=== PATIENT | female | born 2000 | race Caucasian/White ===

== ENCOUNTER 2023-04-14 13:24 | Outpatient (CLI) | payer BC, SELFPAY | END 2023-04-14 13:25 | disposition home or self-care (01) | LOC: LKVREF 13:25 | PROVIDERS: PCP Physician Assistant Medical; Visit Provider Physician Assistant Medical | DX: L02.31 Cutaneous abscess of buttock (principal); L03.317 Cellulitis of buttock | CPT/HCPCS: 87070; 87186 ==

== ENCOUNTER 2025-04-23 09:22 | Emergency (ER) | payer BC, SELFPAY ==
[2025-04-23 09:25] VITALS: BP 121/83; PULSE 83; RESP 16; TEMP 36.9; O2SAT 100; BMI 24.4
--- OUTSIDE RECORDS SUMMARY | 2025-04-23 09:25 | XMS_ITS | Clinical Summary ---
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 [facility] Allergies No known active allergies Medications JUSTIN 0.25-35 MG-MCG tablet Take 1 Tablet by mouth daily. 1 Active methylPREDNISol one (MEDROL 21 TABLET DOSEPACK) 4 MG tablet Follow package directions 21 Tablet 2 Active methocarbamol (ROBAXIN) 500 MG tablet Take 1 Tablet (500 mg) by mouth at bedtime as needed for Other. 20 Tablet 2 Active Active Problems No known active problems Social History Tobacco Use Types Packs/Day Years Used Date Smoking Tobacco: Never Smokeless Tobacco: Never Alcohol Use Standard Drinks/Week Comments Yes 0 (1 standard drink = 0.6 oz pur e alcohol) Comments No Sex and Gender Information Value Date Recorded Sex Assigned at Not on file Legal Sex Female 3:15 PM CDT Gender Identity Not on file Sexual Orientation Not on file Last Filed Vital Signs Vital Sign Reading Time Taken Comments Blood Pressure 107/67 03/04/2022 11:28 AM CDT Pulse 87 03/04/2022 11:28 AM CDT Temperature 36.6 C (97.9 F) 03/04/2022 11:28 AM CDT Respiratory Rate 16 03/04/2022 11:28 AM CDT Oxygen Saturation 100% 03/04/2022 11:28 AM CDT Inhaled Oxygen Concentration - - Weight - - Height - - Body Mass Index - - Plan of Treatment Health Maintenance Due Date Last Done Comments Cervical Cancer Screening Due 1999 Chlamydia 1999 Hep C Screening (Preventive Services) 1999 HepA Vaccine (2 of 2 - 2-dose series) 03/05/2010 09/04/2009 HPV Vaccine (1 - 3-dose series) 2014 HIV Screening (Preventive Services) 2015 Adult Preventive Visit 2017 HepB Vaccine (1) 2018 COVID-19 Vaccine ( season) 2024 Influenza Vaccine (#1) 2025 , 05/15/2021, 06/19/2020, Additional history exists DTaP/Tdap/Td Vaccine (7 - Tdap) 08/28/2031 08/28/2021, 05/04/2012, 09/03/2004, Additional history exists Zoster/Shingles Vaccine (1 of 2) 2049 Hib Vaccine Completed 11/15/2000, 1999 Pneumococcal Vaccine Aged Out 11/15/2000, 08/10/2000, 06/02/2000 No longer eligible based on patient's age to complete this topic IPV (Polio) Vaccine Completed 09/03/2004, 01/28/2000, 1999 MCV4 Vaccine Aged Out 05/04/2012 No longer eligi ble based on patient's age to complete this topic Meningococcal B Vaccine Aged Out No l onger eligible based on patient's age to complete this topic Insurance [place] [address] Care Teams Acid Bleacher Relationship Specialty Start Date End Date Unassigned, Provider [address] [place] [address] PCP - General 06/22/02
--- NOTE | 2025-04-23 09:50 | ED.GENADULT ---
HPI - General Adult General Date Seen: 04/23/25 Chief complaint: Allergic Reaction Stated complaint: possible alleric reaction Time Seen by Provider: 04/23/25 09:50 History of Present Illness HPI narrative: 24 yo F generally healthy, presenting to the ER today for evaluation an episode of numbness that affected her left hand followed by and numb tingly pins and needles feeling in her lips. She was worried this might be an allergic reaction. She is generally healthy. She has a Nexplanon but takes no other medications. She has no chronic medical conditions. She has been healthy lately. She is here with her mother. Mother notes that she has been under some stress recently because she is young mother in there has been some financial stress. However the patient does not really feel like she has been ?stressed out. ? It is not really feel like panic. The patient does not have a personal history of anxiety or panic disorder. She works from home. At about 830 this morning she was doing some computer work when she had onset of a tingling paresthesia that fact did the finger tips of all 5 fingers of her left hand. She did have other numbness or tingling in her left arm and no symptoms involving her right arm or her legs. Her low left hand was not really clumsy or weak. It was just a little bit tingly. The tingling lasted about 10 minutes or so. Around the time the tingling in her hand and she also noted that she had a tingly feeling affecting her lips on both sides of her upper and lower lip. She says they felt tingly almost like pins and needles when her foot fall asleep. She does not think they were swollen. She also had a little bit of a tingly sensation in her mouth and throat. She was able to swallow. No shortness of breath. Since then she has also developed a bifrontal headache. Eyes are normal. Face is normal. No slurred speech. No facial droop. Neck no posterior headache. No neck pain. She has not had any rash or hives. No trouble breathing. No abdominal pain. No nausea or vomiting. Mother notes that she does have episodes where she gets purple toes from time to time that might be due to ?poor circulation. ?. She has never been diagnosed with Raynaud's disease. She does not think she is . She has Nexplanon. She is sexually active, so does have a lingering doubt that she might be. Related Data Home Medications ?Medication ?Instructions ?Recorded ?Confirmed etonogestrel 68 mg subdermal 1 implant subdermal ONCE 04/14/23 04/23/25 implant (Nexplanon) Allergies Allergy/AdvReac Type Severity Reaction Status Date / Time No Known Drug Allergies Allergy Verified 03/21/25 16:26 [facility] Medical History Calculus of right ureter ?N20.1 - Calculus of ureter (ICD-10) Macrosomia of fetus affecting management of mother ?O36.60X0 - Maternal care for excessive growth, unspecified trimester, not applicable or unspecified (ICD-10) Ruptured ovarian cyst ?N83.209 - Unspecified ovarian cyst, unspecified side (ICD-10) Urinary tract infection ?N39.0 - Urinary tract infection, site not specified (ICD-10) Exam Narrative: Exam Narrative: Constitutional: Appears well-developed and well-nourished. Alert. Conversant. Non toxic. HENT: Head: Atraumatic. Nose: Nose normal. Mouth/Throat: Oral mucosa is clear and moist. no trismus. Pharynx normal. Tonsils symmetric. No tonsillar enlargement, erythema, or exudate. Eyes: Conjunctivae normal. EOM normal. Pupils equal, round, and reactive to light. No scleral icterus. Neck: Normal range of motion. Neck supple. No tracheal deviation present. Cardiovascular: Normal rate, regular rhythm. No gallop. No friction rub. No murmur heard. Symmetric radial artery pulses Pulmonary/Chest: Effort normal. No stridor. No respiratory distress. No wheezes. No rales. No rhonchi . No tenderness. Abdominal: Soft. Bowel sounds normal. No distension. No mass. No tenderness. No rebound. No guarding. Musculoskeletal: RUE: Normal range of motion. No tenderness. No deformity LUE: Normal range of motion. No tenderness. No deformity RLE: Normal range of motion. No edema. No tenderness. No deformity LLE: Normal range of motion. No edema. No tenderness. No deformity Lymph: No cervical adenopathy. Neurological: Mental status normal. Attention normal. Alert and oriented x3. GCS 15. Memory normal. Speech fluent. Cognition normal. Cranial Nerves intact II-XII except I did not formally test gag or visual acuity. EOMI. Palate elevates symmetrically and tongue protrudes in the midline. Strength: 5/5 trapezius on the right and left 5/5 deltoid on the right and left 5/5 biceps on the right and left 5/5 triceps on the right and left 5/5 oil and gas lease pumper on the right and left 5/5 thumb opposition on the right and left 5/5 finger abduction on the right and left 5/5 hip flexors (L3) on the right and left 5/5 quadriceps (L4) on the right and left 5/5 tibialis anterior on the right and left 5/5 EHL (L5) on the right and left 5/5 gastrocnemius (S1) on the right and left 5/5 hamstring on the right and left Sensation intact to light touch in both upper extremities (C4-T1) Sensation intact to light touch in Both lower extremities (L4-S1). Finger to nose and coordination normal. Gait normal. Skin: Skin is warm and dry. No rash noted. No pallor. Normal capillary refill. Psychiatric: Normal mood. Normal affect. Const: Vital Signs, click to edit/add: Vital Signs - 24 hr 04/23/25 09:25 Temperature 98.4 F Pulse Rate [Pulse Oximeter] 83 Respiratory Rate 16 Blood Pressure [Ri ght Upper Arm] 121/83 Pulse Oximetry 100 Oxygen Delivery Me thod Room Air Course Vital Signs Vital signs: Initial Vital Signs Respiratory Effort Normal, Spontaneous, Non-Labored 04/23/25 09:24 Respiratory Depth Normal 04/23/25 09:24 Respiratory Pattern Normal 04/23/25 09:24 Vital Signs Temperature 98.4 F 04/23/25 09:25 Pulse Rate 83 04/23/25 09:25 Respiratory Rate 16 04/23/25 09:25 Blood Pressure 121/83 04/23/25 09:25 Pulse Oximetry 100 04/23/25 09:25 Oxygen Delivery Method Room Air 04/23/25 09:25 Temperature 98.4 F 04/23/25 09:25 Pulse Rate 83 04/23/25 09:25 Respiratory Rate 16 04/23/25 09:25 Blood Pressure 121/83 04/23/25 09:25 Pulse Oximetry 100 04/23/25 09:25 Oxygen Delivery Method Room Air 04/23/25 09:25 Medications Administered Medications: Discontinued Medications Generic Name Dose Route Start Last Admin Trade Name Telly PRN Reason Stop Dose Admin Acetaminophen 1,000 mg 04/23/25 10:23 04/23/25 10:34 Acetaminophen 500 Mg Tablet PO 04/23/25 10:24 1,000 mg ONCE ONE Administration Diphenhydramine HCl 25 mg 04/23/25 10:26 04/23/25 10:34 Diphenhydramine 25 Mg Capsule PO 04/23/25 10:27 25 mg ONCE ONE Administration Medical Decision Making MDM Narrative Medical decision making narrative: Very pleasant generally healthy 24-year-old female presenting to the ER today with an episode lasting about 10 minutes where she had a tingling paresthesias involving the fingertips of her left hand which was followed shortly thereafter by circumoral tingling this and a little bit of tenderness in her mouth and throat. Differential is broad Patient was concerned that she might be having allergic reaction because she had coffee with new cream for this morning. On my exam I do not see any objective evidence for an allergic reaction such as hives, bronchospasm. She is not having any symptoms anaphylactic shock. No GI symptoms. No objective airway or lip swelling. We did treat with Benadryl. At this point does not necessitate epi for steroids She is not . Differential would also include other causes of left hand numbness such as stroke/TIA, S. Discussed this, in detail, with the patient and her mother. At this point we did elect to observe here in the ER to see if she has any evolving or recurring neurologic symptoms. Nothing occurred. We discussed that workup would include brain MRI, angiogram of her head neck, possibly lumbar puncture to check CSF if there is suspicion for MS. Since this was a single self-limited episode, using shared decision-making, we decided forego further workup. Need for follow-up reviewed in detail. Precautions for return to the ER reviewed. Questions answered. Patient and her mother are clear double with the plan of careful observation. Lab Data Labs: Lab Results 04/23/25 Range/Units 10:41 Urine HCG, Qual Negative (Negative) Discharge Plan Discharge Clinical Impression: Left hand paresthesia, Facial paresthesia Patient Disposition: Home, Self-Care Condition: Stable Instructions: Paresthesia (ED) Additional Instructions: As we discussed, at this time we did not know what caused her left hand to be now more your lips to be numb. So far your evaluation looks reassuring. However, I want you to monitor your condition carefully. If you have any more episodes of numbness or weakness, or if it of all other symptoms such as fever, severe headache, visual blurriness or double vision, please come back to the ER right away to be rechecked. Even if you are doing well, please recheck with your regular primary care provider for a checkup within the next 5-10 days. Prescriptions: No Action Nexplanon 68 mg implant 1 implant subdermal ONCE Rx Instructions: as a single dose Follow Up/Referrals: Maureen Jaquez PA-C [Primary Care Provider, Family Practice] Stand Alone Forms: [facility] Info Instructions
[2025-04-23] MEDS: ACETAMINOPHEN 500 MG TABLET 1000 MG PO (10:34)
[2025-04-23 10:47] LABS: Ur HCG Qualitative* Negative (Negative)
== END 2025-04-23 11:51 | disposition home or self-care (01) ==
PROVIDERS: Emergency Provider Emergency Medicine; PCP Physician Assistant Medical
DX: R20.2 Paresthesia of skin (principal)
CPT/HCPCS: 81025; 99282; 99283; A9270

== ENCOUNTER 2025-05-10 15:18 | Outpatient (CLI) | payer BC, SELFPAY ==
[2025-05-12 06:18] LABS: HPV Source Cervix
[2025-05-17 11:25] LABS: Pap Test Digital Imaging Done
== END 2025-05-10 15:19 | disposition home or self-care (01) ==
PROVIDERS: PCP Physician Assistant Medical; Visit Provider Registered Nurse
DX: Z11.51 Encounter for screening for human papillomavirus (HPV) (principal); Z12.4 Encounter for screening for malignant neoplasm of cervix
CPT/HCPCS: 87624; 87625; 88141; 88142; 88175